=== PATIENT | male | born 1985 | race Hispanic/Latino ===

== ENCOUNTER 2019-02-25 08:19 | Day surgery (SDC) | payer BC ==
[2019-02-24 15:11] VITALS: BP 135/78
[2019-02-24 15:17] LABS: APPEARANCE,URINE Clear (CLEAR); BILIRUBIN,URINE Negative (NEGATIVE); COLOR,URINE Yellow (YELLOW); GLUCOSE, URINE (UA) Negative (NEGATIVE); KETONES,URINE Negative (NEGATIVE); LEUKOCYTE ESTERASE ,URINE Trace (NEGATIVE); NITRATE,URINE Negative (NEGATIVE); OCCULT BLOOD,URINE Trace (NEGATIVE); PROTEIN,URINE Negative (NEGATIVE)
[2019-02-24 15:25] LABS: BACTERIA,URINE Rare /HPF (None Seen); SQUAMOUS EPITHELIAL CELL,UR 0-2 /HPF (0-2)
[2019-02-24 15:27] LABS: INR 1.05 (0.85-1.15)
[2019-02-24 15:34] LABS: POTASSIUM 3.9 mmol/L (3.5-5.1)
[2019-02-25] VITALS (18 sets, daily range): BP systolic 100–122; BP diastolic 56–75
[~2019-02-25] VITALS: Ht 177.8 cm; Wt 102.2 kg
[~2019-02-25 08:19] MED LIST: IBUP-2077 PO
[2019-02-25] MEDS ORDERED: LACTATED RINGERS 1000ML 1,000 ML IV ONE (10:35)
[2019-02-25] MEDS: LEVOFLOXACIN 500 MG/D5W 100 ML 100 ML IV PRN ×2 (10:49→11:20)
[2019-02-25] MEDS ORDERED: LIDOCAINE HCL MPF 1% 5ML VIAL ONE (11:11)
[2019-02-25] MEDS ORDERED: FENTANYL CITRATE PF 50 MCG/1 ML 2ML VIAL ONE ×2 (11:12→12:11)
[2019-02-25] MEDS ORDERED: PROPOFOL 10 MG/ML 20ML VIAL IV ONE (11:12)
[2019-02-25] MEDS ORDERED: GLYCOPYRROLATE 1 MG/5 ML SYRINGE ONE (11:54)
[2019-02-25] MEDS ORDERED: ONDANSETRON HCL 4 MG/2 ML VIAL ONE (12:41)
--- NOTE | 2019-02-25 13:40 | NUR ---
post op received new pt from [facility], s/p right eswl. pt awake and alert, no distress noted. denies any pain or discomforts. vs stable on arrival.
--- NOTE | 2019-02-25 14:10 | NUR ---
dc dc instructions given to pts spouse with rx, instructed to strain all urine for fragments. strainer provided to spouse, instructed to f/u with dr. infante. pt states tramadol "makes him sick". that was prescribed to patient, Called Dr. Peralta office spoke to Candice informed her about patients concern with medication prescribed Tramadol. Candice will speak to Dr. Infante and call patient with new prescription, patient voided. red tinge noted to urine. no blood clots noted.
--- NOTE | 2019-02-25 14:20 | NUR ---
dc pt dc home via [facility],no distress noted. denied anypain or discomforts. accompanied by spouse
== END 2019-02-25 14:20 | disposition home or self-care (01) ==
LOC: DAH 08:19
PROVIDERS: ATTEND Urology
DX: N20.0 Calculus of kidney (principal); Z88.0 Allergy status to penicillin; Z79.01 Long term (current) use of anticoagulants
CPT/HCPCS: 36415; 50590; 74018; 80048; 81001; 85610; 87088; A4600; J1956; J2405; J2704; J3010 ×2; J3490 ×2; J7120

== ENCOUNTER 2019-02-25 17:02 | Emergency (ER) | payer BC ==
[2019-02-25] MEDS ORDERED: ONDANSETRON HCL 4 MG/2 ML VIAL ONE (17:26)
[2019-02-25] MEDS ORDERED: SODIUM CHLORIDE 0.9% 1000ML 1,000 ML IV ONE (17:26)
[2019-02-25] MEDS ORDERED: HYDROMORPHONE 1 MG/1 ML AMP ONE (17:26)
== END 2019-02-25 18:12 | disposition home or self-care (01) ==
LOC: EDH 17:02
DX: G89.18 Other acute postprocedural pain (principal); R10.9 Unspecified abdominal pain; R11.0 Nausea; Z98.890 Other specified postprocedural states; Z88.0 Allergy status to penicillin; Z87.442 Personal history of urinary calculi
CPT/HCPCS: 96374; 96375; 99284; J1170; J2405; J7030